=== PATIENT | female | born 1930 | race African-American/Black ===

== ENCOUNTER 2017-01-04 08:51 | Day surgery (SDC) | payer MEDICARE, OTHER ==
[~2017-01-04] VITALS: Ht 157.5 cm; Wt 52.6 kg
[~2017-01-04 08:51] MED LIST: BALANCED SALT IRRIG SOLN COMB1 500ML OP SCH
[2017-01-04] MEDS ORDERED: PHENYLEPHRINE HCL 10% OPHTH DROPS 5ML LEFTEYE ONE (09:40)
[2017-01-04] MEDS ORDERED: TROPICAMIDE 1% OPHTH DROPS 15ML LEFTEYE ONE (09:40)
[2017-01-04] MEDS ORDERED: CYCLOPENTOLATE HCL 1% OPHTH DROPS 2ML LEFTEYE ONE (09:40)
[2017-01-04] MEDS ORDERED: LACTATED RINGERS 1,000 ML IV SCH (10:20)
[2017-01-04] MEDS ORDERED: LIDOCAINE HCL 2%/EPINEPHRINE 1:100,000 20 ML VIAL INFIL ONE (11:33)
[2017-01-04] MEDS ORDERED: TETRACAINE 0.5% OPHTH DROPS 4ML ONE (11:33)
[2017-01-04] MEDS ORDERED: PREDNISOLONE ACETATE 1% OPHTH DROPS 1ML ONE (11:33)
[2017-01-04] MEDS ORDERED: ACETYLCHOLINE CHLORIDE INTRAOCULAR SOLUTION 1:100 ELECTROLYTE DILUENT IO ONE (11:33)
[2017-01-04] MEDS ORDERED: BALANCED SALT IRRIG SOLN 15ML ONE (11:33)
[2017-01-04] MEDS ORDERED: LIDOCAINE HCL/PF 2% 20 MG/ML 10ML VIAL ONE (11:33)
[2017-01-04] MEDS ORDERED: NEO/POLYMYX B SULF/DEXAMETH OPHTH OINT 3.5GM ONE (11:33)
[2017-01-04] MEDS ORDERED: CIPROFLOXACIN 0.3% OPHTH SOLN 2.5ML ONE (11:33)
[2017-01-04] MEDS ORDERED: BUPIVACAINE HCL/PF 0.75% (7.5MG/ML) 10ML ONE (11:33)
[2017-01-04] MEDS ORDERED: DORZ10DR7 EACHEYE (11:51)
[2017-01-04] MEDS ORDERED: ERGO2000 PO (11:51)
[2017-01-04] MEDS ORDERED: OCD PO (11:51)
[2017-01-04] MEDS ORDERED: LATA2.5D2 EACHEYE (11:51)
[2017-01-04] MEDS ORDERED: SENN25TA27 PO (11:51)
[2017-01-04] MEDS ORDERED: HYALURONATE SODIUM 14 MG/ML 0.85ML SYRINGE IO ONE (12:21)
[2017-01-04] MEDS ORDERED: MIDAZOLAM HCL 2 MG/2 ML VIAL ONE (12:31)
[2017-01-04] MEDS ORDERED: PROPOFOL 200MG/20ML VIAL IV ONE (12:35)
[2017-01-04] MEDS ORDERED: SODIUM CHLORIDE 0.9% 1,000 ML IV SCH (12:38)
[2017-01-04] MEDS ORDERED: MORPHINE SULFATE 2 MG/ML CPJ (NOT FOR IM USE) IV PRN (12:45)
[2017-01-04] MEDS ORDERED: ONDANSETRON HCL 4MG/2ML VIAL IV PRN (12:45)
== END 2017-01-04 15:12 | disposition home or self-care (01) ==
LOC: OR 08:51
PROVIDERS: ATTEND Ophthalmology
DX: H25.9 Unspecified age-related cataract (principal); H40.1120 Primary open-angle glaucoma, left eye, stage unspecified; D64.9 Anemia, unspecified
CPT/HCPCS: 66625; 66984; J2250; J3490; V2632; J2704

== ENCOUNTER 2020-11-17 00:54 | Inpatient (IN) | payer MEDICARE, OTHER ==
[~2020-11-17] VITALS: Ht 162.6 cm; Wt 56.8 kg
[~2020-11-17 00:54] MED LIST changes: -BALANCED SALT IRRIG SOLN COMB1 500ML OP SCH; +DORZ10DR8 EACHEYE; +ERGO2000 PO; +LATA2.5D14 EACHEYE; +OCD PO; +SENN25TA27 PO; +TOPUD MT
[2020-11-17] MEDS ORDERED: MAGNESIUM/ALUMINUM HYDROXIDE/SIMETHICONE 30ML UDC PO STA (02:05)
[2020-11-17] MEDS ORDERED: ACETAMINOPHEN 325MG TABLET PO STA (02:05)
[2020-11-17 02:39] LABS: BASOPHILS % 0.3 % (0.0-2.0); HEMATOCRIT. 36.5 % (36.0-48.0); HEMOGLOBIN. 11.9 g/dL (12.0-16.0); MEAN CORPUSCULAR HEMOGLOBIN 30.4 pg (28.0-32.0); MEAN CORPUSCULAR VOLUME 93.2 fL (81.0-99.0); MEAN PLATELET VOLUME 7.1 fl (7.4-10.4); MONOCYTES % 10.1 % (2.0-8.0); NEUTROPHILS % 78.6 % (40.0-76.0); PLATELET 297 x1000/uL (130-400); RED BLOOD CELL COUNT 3.91 mill/uL (4.2-5.4); RED CELL DISTRIBUTION WIDTH 13.2 % (11.6-14.6)
[2020-11-17 02:42] LABS: CHLORIDE 100 mEq/L (98-107)
[2020-11-17] MEDS ORDERED: SODIUM CHLORIDE 0.9% 1,000 ML IV ONE (03:15)
[2020-11-17 05:03] LABS: CLARITY URINE CLEAR (CLEAR); COLOR URINE RED (YELLOW); KETONES URINE NEGATIVE (NEGATIVE); LEUKOCYTE ESTERASE URINE TRACE (NEGATIVE); NITRITE URINE NEGATIVE (NEGATIVE); OCCULT BLOOD URINE 3+ (NEGATIVE); PROTEIN URINE 2+ (NEGATIVE); SPECIFIC GRAVITY URINE 1.006 (1.005-1.030); UROBILINOGEN URINE 0.2 E.U./dL (0.2-1.0)
[2020-11-17] MEDS ORDERED: MORPHINE SULFATE 2 MG/ML CPJ (NOT FOR IM USE) IV ONE (06:45)
[2020-11-17] MEDS: HYDROCODONE/ACETAMINOPHEN 10/325MG TABLET PO PRN ×2 (08:56→20:51)
[2020-11-17] MEDS ORDERED: NALOXONE HCL 0.4MG/ML VIAL IV PRN (09:00)
[2020-11-17] MEDS: CEFTRIAXONE 1,000 MG in DEXTROSE 5% WATER 50 ML IV SCH (14:05)
[2020-11-17] MEDS ORDERED: POTASSIUM CHLORIDE 20MEQ TABLET SR PO SCH (17:00)
[2020-11-17 20:30] VITALS: BP 147/69
[2020-11-17] MEDS: ONDANSETRON HCL 4MG/2ML INJ IV PRN (20:50)
[2020-11-17] MEDS ORDERED: ASPI-986 PO (21:14)
[2020-11-17 21:30] VITALS: BP 147/69
[2020-11-17] MEDS ORDERED: ACETAMINOPHEN 325MG TABLET PO PRN (22:00)
[2020-11-17] MEDS ORDERED: ZOLPIDEM TARTRATE 5MG TABLET PO PRN (22:00)
[2020-11-17] MEDS: LATANOPROST 0.005% OPHTH DROPS 2.5ML BOTHEYE SCH (23:30)
[2020-11-18] VITALS: BP 109/59
[2020-11-18 04:00] VITALS: BP 133/75
[2020-11-18 08:00] VITALS: BP 133/69
[2020-11-18 09:01] LABS: BASOPHILS % 0.3 % (0.0-2.0); EOSINOPHILS % 0.6 % (0.0-5.0); HEMATOCRIT. 32.7 % (36.0-48.0); HEMOGLOBIN. 10.9 g/dL (12.0-16.0); LYMPHOCYTES % 14.4 % (20.0-50.0); MEAN CORPUSCULAR HEMOGLOBIN 30.5 pg (28.0-32.0); MEAN CORPUSCULAR VOLUME 91.8 fL (81.0-99.0); MEAN PLATELET VOLUME 7.2 fl (7.4-10.4); MONOCYTES % 11.2 % (2.0-8.0); NEUTROPHILS % 73.5 % (40.0-76.0); PLATELET 284 x1000/uL (130-400); RED BLOOD CELL COUNT 3.56 mill/uL (4.2-5.4); RED CELL DISTRIBUTION WIDTH 13.3 % (11.6-14.6)
[2020-11-18 12:00] VITALS: BP 99/50
[2020-11-18] MEDS: CEFTRIAXONE 1,000 MG in DEXTROSE 5% WATER 50 ML IV SCH (12:29)
[2020-11-18] MEDS ORDERED: LACTULOSE 20G/30ML UDC PO NR (14:15)
[2020-11-18 16:00] VITALS: BP 112/68
[2020-11-18] MEDS: HYDROCODONE/ACETAMINOPHEN 10/325MG TABLET PO PRN (17:48)
[2020-11-18 20:00] VITALS: BP 102/61
[2020-11-18] MEDS: LATANOPROST 0.005% OPHTH DROPS 2.5ML BOTHEYE SCH (20:42)
[2020-11-19] VITALS (7 sets, daily range): BP systolic 98–134; BP diastolic 61–83
[2020-11-19] MEDS: HYDROCODONE/ACETAMINOPHEN 10/325MG TABLET PO PRN ×2 (09:06→18:20)
[2020-11-19] MEDS: CEFTRIAXONE 1,000 MG in DEXTROSE 5% WATER 50 ML IV SCH (13:13)
[2020-11-19] MEDS ORDERED: SORBITOL 70% SOLN 30ML PO NR (13:15)
[2020-11-19] MEDS ORDERED: BISACODYL 10MG SUPP PR NR (13:15)
[2020-11-19] MEDS ORDERED: NA PHOS,M-B/NA PHOS,DI-BA ENEMA 118ML PR NR (19:00)
[2020-11-19] MEDS: LATANOPROST 0.005% OPHTH DROPS 2.5ML BOTHEYE SCH (20:12)
[2020-11-20] VITALS: BP 118/74
[2020-11-20 04:00] VITALS: BP 97/36
[2020-11-20] MEDS: HYDROCODONE/ACETAMINOPHEN 10/325MG TABLET PO PRN ×3 (04:25→22:29)
[2020-11-20 08:00] VITALS: BP 118/68
[2020-11-20 12:00] VITALS: BP 144/78
[2020-11-20] MEDS ORDERED: NA PHOS,M-B/NA PHOS,DI-BA ENEMA 118ML PR NR ×2 (12:45→20:00)
[2020-11-20] MEDS: CEFTRIAXONE 1,000 MG in DEXTROSE 5% WATER 50 ML IV SCH (14:12)
[2020-11-20 16:00] VITALS: BP 121/69
[2020-11-20] MEDS ORDERED: BISACODYL 10MG SUPP PR NR (16:45)
[2020-11-20 16:55] LABS: CLARITY URINE TURBID (CLEAR); COLOR URINE RED (YELLOW); KETONES URINE NEGATIVE (NEGATIVE); LEUKOCYTE ESTERASE URINE 2+ (NEGATIVE); NITRITE URINE POSITIVE (NEGATIVE); OCCULT BLOOD URINE 2+ (NEGATIVE); PH URINE 5.5 (4.5-8.0); PROTEIN URINE 2+ (NEGATIVE); SPECIFIC GRAVITY URINE 1.013 (1.005-1.030); UROBILINOGEN URINE 0.2 E.U./dL (0.2-1.0)
[2020-11-20] MEDS ORDERED: SORBITOL 70% SOLN 30ML PO NR (17:00)
[2020-11-20 20:00] VITALS: BP 144/75
[2020-11-20] MEDS: LATANOPROST 0.005% OPHTH DROPS 2.5ML BOTHEYE SCH (22:16)
[2020-11-20] MEDS: DEXT 5%/0.45% NACL KCL 20MEQ/L 1,000 ML IV SCH (22:16)
[2020-11-21] VITALS: BP 136/77
[2020-11-21 04:00] VITALS: BP 146/76
[2020-11-21 08:00] VITALS: BP 118/68
[2020-11-21] MEDS: LACTULOSE 20G/30ML UDC PO SCH ×3 (09:50→16:06)
[2020-11-21] MEDS: DEXT 5%/0.45% NACL KCL 20MEQ/L 1,000 ML IV SCH ×2 (10:02→16:02)
[2020-11-21 12:00] VITALS: BP 155/63
[2020-11-21] MEDS: HYDROCODONE/ACETAMINOPHEN 10/325MG TABLET PO PRN ×2 (13:56→21:00)
[2020-11-21 16:00] VITALS: BP 156/86
[2020-11-21] MEDS ORDERED: SORBITOL 70% SOLN 30ML PO NR (16:00)
[2020-11-21] MEDS: CEFTRIAXONE 1,000 MG in DEXTROSE 5% WATER 50 ML IV SCH (16:02)
[2020-11-21 20:00] VITALS: BP 176/92
[2020-11-21] MEDS: ONDANSETRON HCL 4MG/2ML INJ IV PRN (20:58)
[2020-11-21] MEDS: CLONIDINE 0.1MG TABLET PO PRN (20:59)
[2020-11-21] MEDS: LATANOPROST 0.005% OPHTH DROPS 2.5ML BOTHEYE SCH (21:03)
[2020-11-22] VITALS (7 sets, daily range): BP systolic 146–184; BP diastolic 71–102
[2020-11-22] MEDS: DEXT 5%/0.45% NACL KCL 20MEQ/L 1,000 ML IV SCH ×2 (02:57→22:36)
[2020-11-22] MEDS: CLONIDINE 0.1MG TABLET PO PRN (02:57)
[2020-11-22] MEDS: HYDROCODONE/ACETAMINOPHEN 10/325MG TABLET PO PRN (02:57)
[2020-11-22] MEDS: ONDANSETRON HCL 4MG/2ML INJ IV PRN ×2 (02:57→10:05)
[2020-11-22] MEDS ORDERED: HYDRALAZINE 20MG/ML VIAL IV PRN (05:15)
[2020-11-22] MEDS: MORPHINE SULFATE 2 MG/ML CPJ (NOT FOR IM USE) IV PRN ×2 (05:31→23:44)
[2020-11-22] MEDS: LACTULOSE 20G/30ML UDC PO SCH ×3 (09:23→17:00)
[2020-11-22] MEDS: AMLODIPINE 10MG TABLET PO SCH (09:24)
[2020-11-22] MEDS: HYDRALAZINE 10 MG in SODIUM CHLORIDE 0.9% 49.5 ML IV PRN ×2 (12:48→23:46)
[2020-11-22] MEDS: CEFTRIAXONE 1,000 MG in DEXTROSE 5% WATER 50 ML IV SCH (12:52)
[2020-11-22] MEDS: LATANOPROST 0.005% OPHTH DROPS 2.5ML BOTHEYE SCH (21:54)
[2020-11-23 00:45] VITALS: BP 159/85
[2020-11-23 04:00] VITALS: BP 113/71
[2020-11-23 08:00] VITALS: BP 147/77
[2020-11-23] MEDS: AMLODIPINE 10MG TABLET PO SCH (09:41)
[2020-11-23] MEDS: LACTULOSE 20G/30ML UDC PO SCH ×3 (09:41→17:52)
[2020-11-23] MEDS: DEXT 5%/0.45% NACL KCL 20MEQ/L 1,000 ML IV SCH (09:43)
[2020-11-23 12:00] VITALS: BP 156/87
[2020-11-23] MEDS: MORPHINE SULFATE 2 MG/ML CPJ (NOT FOR IM USE) IV PRN ×2 (12:31→23:21)
[2020-11-23] MEDS: ONDANSETRON HCL 4MG/2ML INJ IV PRN (12:48)
[2020-11-23 13:41] LABS: HEMATOCRIT. 34.4 % (36.0-48.0); HEMOGLOBIN. 11.8 g/dL (12.0-16.0); MEAN CORPUSCULAR HEMOGLOBIN 31.3 pg (28.0-32.0); MEAN CORPUSCULAR VOLUME 91.1 fL (81.0-99.0); MEAN PLATELET VOLUME 6.7 fl (7.4-10.4); PLATELET 318 x1000/uL (130-400); RED BLOOD CELL COUNT 3.78 mill/uL (4.2-5.4); RED CELL DISTRIBUTION WIDTH 13.3 % (11.6-14.6)
[2020-11-23 16:00] VITALS: BP 162/90
[2020-11-23] MEDS: METOCLOPRAMIDE HCL 10MG/2ML VIAL IV SCH ×2 (17:52→23:20)
[2020-11-23] MEDS: DEXT 5%/0.9% NACL 1,000 ML IV SCH (17:52)
[2020-11-23 20:00] VITALS: BP 145/81
[2020-11-23] MEDS: LATANOPROST 0.005% OPHTH DROPS 2.5ML BOTHEYE SCH (21:00)
[2020-11-23] MEDS: PIPERACILLIN/TAZOBACTAM 2.25 G in DEXTROSE 5% WATER 50 ML IV SCH (23:20)
[2020-11-24] VITALS: BP 113/73
[2020-11-24 00:24] LABS: NUCLEATED RED BLOOD CELLS 1 /100 WBC; PLATELET ESTIMATE NORMAL
[2020-11-24] MEDS: DEXT 5%/0.9% NACL 1,000 ML IV SCH ×2 (02:53→11:38)
[2020-11-24 04:00] VITALS: BP 152/91
[2020-11-24] MEDS: METOCLOPRAMIDE HCL 10MG/2ML VIAL IV SCH ×3 (06:00→17:51)
[2020-11-24] MEDS: PIPERACILLIN/TAZOBACTAM 2.25 G in DEXTROSE 5% WATER 50 ML IV SCH ×4 (06:00→22:59)
[2020-11-24 06:22] LABS: HEMATOCRIT. 36.1 % (36.0-48.0); HEMOGLOBIN. 11.8 g/dL (12.0-16.0); LYMPHOCYTES % 8.3 % (20.0-50.0); MEAN CORPUSCULAR HEMOGLOBIN 30.2 pg (28.0-32.0); MEAN CORPUSCULAR VOLUME 92.3 fL (81.0-99.0); MONOCYTES % 13.3 % (2.0-8.0); NEUTROPHILS % 78.4 % (40.0-76.0); PLATELET 294 x1000/uL (130-400); RED BLOOD CELL COUNT 3.91 mill/uL (4.2-5.4); RED CELL DISTRIBUTION WIDTH 13.4 % (11.6-14.6)
[2020-11-24 08:00] VITALS: BP 161/85
[2020-11-24] MEDS: AMLODIPINE 10MG TABLET PO SCH (09:00)
[2020-11-24] MEDS: LACTULOSE 20G/30ML UDC PO SCH (09:00)
[2020-11-24] MEDS: HYDRALAZINE 20MG/ML VIAL IV PRN (09:37)
[2020-11-24 12:00] VITALS: BP 143/72
[2020-11-24] MEDS ORDERED: FUROSEMIDE 40MG/4ML VIAL IVP SCH (13:00)
[2020-11-24 16:00] VITALS: BP 116/71
[2020-11-24] MEDS: MORPHINE SULFATE 2 MG/ML CPJ (NOT FOR IM USE) IV PRN (16:06)
[2020-11-24 20:00] VITALS: BP 113/69
[2020-11-24] MEDS: LATANOPROST 0.005% OPHTH DROPS 2.5ML BOTHEYE SCH (22:55)
[2020-11-25] VITALS: BP 115/62
[2020-11-25] MEDS: METOCLOPRAMIDE HCL 10MG/2ML VIAL IV SCH ×4 (00:11→18:42)
[2020-11-25] MEDS: DEXT 5%/0.9% NACL 1,000 ML IV SCH ×2 (01:20→16:00)
[2020-11-25 04:00] VITALS: BP 121/88
[2020-11-25] MEDS: PIPERACILLIN/TAZOBACTAM 2.25 G in DEXTROSE 5% WATER 50 ML IV SCH ×4 (04:56→22:59)
[2020-11-25 08:00] VITALS: BP 114/57
[2020-11-25] MEDS: AMLODIPINE 10MG TABLET PO SCH (09:00)
[2020-11-25 10:59] LABS: EOSINOPHILS % 0.1 % (0.0-5.0); HEMATOCRIT. 29.1 % (36.0-48.0); HEMOGLOBIN. 10.2 g/dL (12.0-16.0); LYMPHOCYTES % 10.9 % (20.0-50.0); MEAN CORPUSCULAR HEMOGLOBIN 31.7 pg (28.0-32.0); MEAN CORPUSCULAR VOLUME 90.8 fL (81.0-99.0); MEAN PLATELET VOLUME 6.8 fl (7.4-10.4); MONOCYTES % 14.7 % (2.0-8.0); NEUTROPHILS % 74.3 % (40.0-76.0); PLATELET 269 x1000/uL (130-400); RED CELL DISTRIBUTION WIDTH 13.6 % (11.6-14.6)
[2020-11-25 11:00] LABS: CHLORIDE 105 mEq/L (98-107)
[2020-11-25 12:00] VITALS: BP 100/60
[2020-11-25 16:00] VITALS: BP 100/50
[2020-11-25] MEDS: FUROSEMIDE 40MG/4ML VIAL IVP SCH (16:00)
[2020-11-25 20:00] VITALS: BP 96/72
[2020-11-25] MEDS ORDERED: ENOXAPARIN 40MG/0.4ML SYR SUBCUT SCH (20:10)
[2020-11-25] MEDS: LATANOPROST 0.005% OPHTH DROPS 2.5ML BOTHEYE SCH (21:00)
[2020-11-26] VITALS (15 sets, daily range): BP systolic 105–165; BP diastolic 61–86
[2020-11-26] MEDS: METOCLOPRAMIDE HCL 10MG/2ML VIAL IV SCH ×5 (00:41→23:32)
[2020-11-26] MEDS: PIPERACILLIN/TAZOBACTAM 2.25 G in DEXTROSE 5% WATER 50 ML IV SCH ×4 (05:15→23:16)
[2020-11-26 07:40] LABS: BASOPHILS % 0.1 % (0.0-2.0); EOSINOPHILS % 0.3 % (0.0-5.0); HEMATOCRIT. 31.5 % (36.0-48.0); HEMOGLOBIN. 10.5 g/dL (12.0-16.0); MEAN CORPUSCULAR HEMOGLOBIN 30.9 pg (28.0-32.0); MEAN CORPUSCULAR VOLUME 92.3 fL (81.0-99.0); MEAN PLATELET VOLUME 7.2 fl (7.4-10.4); MONOCYTES % 14.5 % (2.0-8.0); NEUTROPHILS % 71.1 % (40.0-76.0); PLATELET 267 x1000/uL (130-400); RED BLOOD CELL COUNT 3.42 mill/uL (4.2-5.4); RED CELL DISTRIBUTION WIDTH 13.8 % (11.6-14.6)
[2020-11-26] MEDS: AMLODIPINE 10MG TABLET PO SCH (09:00)
[2020-11-26] MEDS: FUROSEMIDE 40MG/4ML VIAL IVP SCH (09:58)
[2020-11-26] MEDS ORDERED: POTASSIUM CHLORIDE INJ 40 MEQ in DEXT 5% WATER 250 ML IV NR ×2 (11:00→20:00)
[2020-11-26] MEDS: DEXT 5%/0.9% NACL 1,000 ML IV SCH ×2 (11:33→17:27)
[2020-11-26] MEDS ORDERED: LIDOCAINE HCL 1% 20ML VIAL (Pyxis) INJ ONE (16:08)
[2020-11-26] MEDS ORDERED: POLYMYXIN B SULFATE 500000 UNITS/VIAL ONE ×2 (16:09→20:49)
[2020-11-26] MEDS ORDERED: BUPIVACAINE HCL/PF 0.5% (5MG/ML) 10ML ONE (16:09)
[2020-11-26] MEDS ORDERED: ROCURONIUM BROMIDE 10MG/ML VIAL 5ML IV ONE (19:47)
[2020-11-26] MEDS ORDERED: PROPOFOL 200MG/20ML VIAL IV ONE (19:56)
[2020-11-26] MEDS ORDERED: DEXAMETHASONE 4MG/ML 1ML VIAL ONE (19:56)
[2020-11-26] MEDS ORDERED: EPHEDRINE SULFATE 50MG/ML VIAL ONE (20:05)
[2020-11-26] MEDS ORDERED: PROPOFOL 10MG/ML 100ML 100 ML IV ONE (20:12)
[2020-11-26] MEDS ORDERED: ALBUMIN HUMAN 25GM/100ML (25%) IV ONE (20:32)
[2020-11-26] MEDS: LATANOPROST 0.005% OPHTH DROPS 2.5ML BOTHEYE SCH (21:00)
[2020-11-26] MEDS ORDERED: MORPHINE SULFATE 4 MG/ML CPJ (NOT FOR IM USE) IV PRN (21:30)
[2020-11-26] MEDS ORDERED: PROPOFOL 10MG/ML 100ML 100 ML IV PRN (22:00)
[2020-11-26 22:34] LABS: BG CARBOXYHEMOGLOBIN 0.3 % (0.5-1.5); BG DEOXYHEMOGLOBIN 0.6 % (0.0-5.0); BG FRACTION INSPIRED OXYGEN 100; BG HCO3 ACT 24.4 mmol/L (22.0-26.0); BG METHEMOGLOBIN 0.5 % (0.0-1.5); BG OXYGEN SATURATION 99.4 % (92.0-98.5); BG OXYHEMOGLOBIN 98.6 % (94.0-97.0); BG PCO2 33.7 mmHg (35.0-45.0); BG PH 7.477 (7.350-7.450); BG TOTAL HEMOGLOBIN 9.5 g/dL (12.0-18.0); BG VENT MODE VENT - AC
[2020-11-26] MEDS: PROPOFOL 10MG/ML 100ML 100 ML IV PRN (23:17)
[2020-11-27] VITALS (89 sets, daily range): BP systolic 102–175; BP diastolic 40–82
[2020-11-27] MEDS: METOCLOPRAMIDE HCL 10MG/2ML VIAL IV SCH ×4 (05:14→23:34)
[2020-11-27] MEDS: PIPERACILLIN/TAZOBACTAM 2.25 G in DEXTROSE 5% WATER 50 ML IV SCH ×4 (05:14→22:32)
[2020-11-27 05:27] LABS: HEMOGLOBIN. 9.1 g/dL (12.0-16.0); MEAN CORPUSCULAR HEMOGLOBIN 31.9 pg (28.0-32.0); MEAN CORPUSCULAR VOLUME 91.4 fL (81.0-99.0); MEAN PLATELET VOLUME 7.2 fl (7.4-10.4); PLATELET 197 x1000/uL (130-400); RED BLOOD CELL COUNT 2.85 mill/uL (4.2-5.4); RED CELL DISTRIBUTION WIDTH 13.5 % (11.6-14.6)
[2020-11-27] MEDS: DEXT 5%/0.9% NACL 1,000 ML IV SCH ×2 (06:04→15:19)
[2020-11-27] MEDS: PROPOFOL 10MG/ML 100ML 100 ML IV PRN (06:04)
[2020-11-27 07:50] LABS: PLATELET ESTIMATE NORMAL
[2020-11-27] MEDS: AMLODIPINE 10MG TABLET PO SCH (09:00)
[2020-11-27] MEDS ORDERED: POTASSIUM CHLORIDE INJ 40 MEQ in DEXT 5% WATER 250 ML IV NR ×2 (09:00→17:00)
[2020-11-27] MEDS: FUROSEMIDE 40MG/4ML VIAL IVP SCH (09:55)
[2020-11-27 12:15] LABS: BG BASE EXCESS 1.4 mmol/L (-2.0-2.0); BG CARBOXYHEMOGLOBIN 0.3 % (0.5-1.5); BG DEOXYHEMOGLOBIN 4.6 % (0.0-5.0); BG HCO3 ACT 24.8 mmol/L (22.0-26.0); BG METHEMOGLOBIN 0.3 % (0.0-1.5); BG OXYGEN SATURATION 95.4 % (92.0-98.5); BG OXYHEMOGLOBIN 94.8 % (94.0-97.0); BG PCO2 34.8 mmHg (35.0-45.0); BG PH 7.471 (7.350-7.450); BG PO2 77.7 mmHg (75.0-100.0); BG SAMPLE SITE RIGHT BRACHIAL; BG TOTAL HEMOGLOBIN 10.1 g/dL (12.0-18.0); BG VENT MODE VENT - CPAP
[2020-11-27] MEDS: HYDRALAZINE 20MG/ML VIAL IV PRN (12:44)
[2020-11-27] MEDS: MORPHINE SULFATE 2 MG/ML CPJ (NOT FOR IM USE) IV PRN (20:26)
[2020-11-27] MEDS: LATANOPROST 0.005% OPHTH DROPS 2.5ML BOTHEYE SCH (23:34)
[2020-11-28] VITALS (48 sets, daily range): BP systolic 92–138; BP diastolic 50–96
[2020-11-28] MEDS: METOCLOPRAMIDE HCL 10MG/2ML VIAL IV SCH ×4 (05:23→23:34)
[2020-11-28] MEDS: PIPERACILLIN/TAZOBACTAM 2.25 G in DEXTROSE 5% WATER 50 ML IV SCH ×4 (05:23→23:33)
[2020-11-28 05:28] LABS: EOSINOPHILS % 0.1 % (0.0-5.0); HEMOGLOBIN. 10.1 g/dL (12.0-16.0); LYMPHOCYTES % 11.1 % (20.0-50.0); MEAN CORPUSCULAR HEMOGLOBIN 30.5 pg (28.0-32.0); MEAN CORPUSCULAR VOLUME 90.6 fL (81.0-99.0); MEAN PLATELET VOLUME 6.7 fl (7.4-10.4); MONOCYTES % 13.8 % (2.0-8.0); PLATELET 246 x1000/uL (130-400); RED BLOOD CELL COUNT 3.31 mill/uL (4.2-5.4); RED CELL DISTRIBUTION WIDTH 13.6 % (11.6-14.6)
[2020-11-28] MEDS: FUROSEMIDE 40MG/4ML VIAL IVP SCH (08:43)
[2020-11-28] MEDS: AMLODIPINE 10MG TABLET PO SCH (08:43)
[2020-11-28] MEDS: DEXTROSE 5% WATER 1,000 ML IV SCH ×2 (10:14→23:34)
[2020-11-28] MEDS: MORPHINE SULFATE 2 MG/ML CPJ (NOT FOR IM USE) IV PRN ×2 (16:15→23:37)
[2020-11-28] MEDS: LATANOPROST 0.005% OPHTH DROPS 2.5ML BOTHEYE SCH (21:04)
[2020-11-29] VITALS (16 sets, daily range): BP systolic 93–139; BP diastolic 47–86
[2020-11-29 05:37] LABS: HEMATOCRIT. 33.9 % (36.0-48.0); HEMOGLOBIN. 11.3 g/dL (12.0-16.0); MEAN CORPUSCULAR HEMOGLOBIN 30.5 pg (28.0-32.0); MEAN CORPUSCULAR VOLUME 91.8 fL (81.0-99.0); PLATELET 222 x1000/uL (130-400); RED CELL DISTRIBUTION WIDTH 13.7 % (11.6-14.6)
[2020-11-29] MEDS: MORPHINE SULFATE 2 MG/ML CPJ (NOT FOR IM USE) IV PRN (06:05)
[2020-11-29] MEDS: METOCLOPRAMIDE HCL 10MG/2ML VIAL IV SCH ×3 (06:05→17:12)
[2020-11-29] MEDS ORDERED: POTASSIUM CHLORIDE INJ 40 MEQ in DEXT 5% WATER 500 ML IV SCH (08:00)
[2020-11-29 08:03] LABS: NUCLEATED RED BLOOD CELLS 1 /100 WBC; PLATELET ESTIMATE NORMAL
[2020-11-29] MEDS: AMLODIPINE 10MG TABLET PO SCH (09:00)
[2020-11-29] MEDS: FUROSEMIDE 40MG/4ML VIAL IVP SCH (09:13)
[2020-11-29] MEDS: BISACODYL 10MG SUPP PR SCH (09:13)
[2020-11-29] MEDS ORDERED: ENOXAPARIN 60MG/0.6ML SYR SUBCUT SCH (11:00)
[2020-11-29] MEDS: DEXTROSE 5% WATER 1,000 ML IV SCH (12:40)
[2020-11-29 21:40] LABS: BASOPHILS % 0.2 % (0.0-2.0); EOSINOPHILS % 0.7 % (0.0-5.0); HEMATOCRIT. 31.5 % (36.0-48.0); HEMOGLOBIN. 10.6 g/dL (12.0-16.0); LYMPHOCYTES % 20.2 % (20.0-50.0); MEAN CORPUSCULAR HEMOGLOBIN 30.9 pg (28.0-32.0); MEAN CORPUSCULAR VOLUME 91.6 fL (81.0-99.0); MEAN PLATELET VOLUME 7.1 fl (7.4-10.4); MONOCYTES % 10.6 % (2.0-8.0); NEUTROPHILS % 68.3 % (40.0-76.0); PLATELET 213 x1000/uL (130-400); RED BLOOD CELL COUNT 3.44 mill/uL (4.2-5.4); RED CELL DISTRIBUTION WIDTH 13.7 % (11.6-14.6)
[2020-11-29 21:44] LABS: INR 1.2; PARTIAL THROMBOPLASTIN TIME 36.2 sec (23.4-31.0); PROTHROMBIN TIME 12.4 sec (9.6-11.0)
[2020-11-29] MEDS ORDERED: PANTOPRAZOLE SODIUM 40 MG/VIAL IV NR (23:45)
[2020-11-29] MEDS: LATANOPROST 0.005% OPHTH DROPS 2.5ML BOTHEYE SCH (23:49)
[2020-11-30] VITALS (13 sets, daily range): BP systolic 92–116; BP diastolic 43–73
[2020-11-30] MEDS: METOCLOPRAMIDE HCL 10MG/2ML VIAL IV SCH ×4 (00:12→17:42)
[2020-11-30] MEDS: MORPHINE SULFATE 2 MG/ML CPJ (NOT FOR IM USE) IV PRN ×2 (00:13→07:40)
[2020-11-30] MEDS: DEXTROSE 5% WATER 1,000 ML IV SCH ×2 (03:04→21:30)
[2020-11-30] MEDS ORDERED: PANTOPRAZOLE SODIUM 40 MG/VIAL IV NR (06:00)
[2020-11-30] MEDS: AMLODIPINE 10MG TABLET PO SCH (08:23)
[2020-11-30] MEDS: BISACODYL 10MG SUPP PR SCH (08:26)
[2020-11-30] MEDS ORDERED: PANTOPRAZOLE SODIUM 40 MG/VIAL IV SCH (09:00)
[2020-11-30 10:18] LABS: BASOPHILS % 0.1 % (0.0-2.0); EOSINOPHILS % 0.4 % (0.0-5.0); HEMATOCRIT. 27.2 % (36.0-48.0); HEMOGLOBIN. 9.3 g/dL (12.0-16.0); LYMPHOCYTES % 16.8 % (20.0-50.0); MEAN CORPUSCULAR VOLUME 90.9 fL (81.0-99.0); MEAN PLATELET VOLUME 7.5 fl (7.4-10.4); MONOCYTES % 8.9 % (2.0-8.0); NEUTROPHILS % 73.8 % (40.0-76.0); PLATELET 193 x1000/uL (130-400); RED BLOOD CELL COUNT 2.99 mill/uL (4.2-5.4); RED CELL DISTRIBUTION WIDTH 13.7 % (11.6-14.6)
[2020-11-30] MEDS: ENOXAPARIN 60MG/0.6ML SYR SUBCUT SCH (12:07)
[2020-11-30] MEDS ORDERED: POTASSIUM CHLORIDE INJ 40 MEQ in DEXT 5% WATER 250 ML IV NR (13:30)
[2020-11-30] MEDS: PANTOPRAZOLE SODIUM 40 MG/VIAL IV SCH (17:43)
[2020-11-30] MEDS: LATANOPROST 0.005% OPHTH DROPS 2.5ML BOTHEYE SCH (21:30)
[2020-12-01] VITALS (12 sets, daily range): BP systolic 108–133; BP diastolic 40–76
[2020-12-01] MEDS: METOCLOPRAMIDE HCL 10MG/2ML VIAL IV SCH ×4 (00:17→18:38)
[2020-12-01] MEDS: DEXTROSE 5% WATER 1,000 ML IV SCH ×2 (04:41→18:38)
[2020-12-01] MEDS: PANTOPRAZOLE SODIUM 40 MG/VIAL IV SCH ×2 (06:24→18:38)
[2020-12-01] MEDS: AMLODIPINE 10MG TABLET PO SCH (09:00)
[2020-12-01 09:54] LABS: BASOPHILS % 0.2 % (0.0-2.0); EOSINOPHILS % 0.2 % (0.0-5.0); HEMATOCRIT. 27.8 % (36.0-48.0); HEMOGLOBIN. 9.6 g/dL (12.0-16.0); LYMPHOCYTES % 15.5 % (20.0-50.0); MEAN CORPUSCULAR HEMOGLOBIN 31.3 pg (28.0-32.0); MEAN CORPUSCULAR VOLUME 90.8 fL (81.0-99.0); MEAN PLATELET VOLUME 7.7 fl (7.4-10.4); MONOCYTES % 7.3 % (2.0-8.0); NEUTROPHILS % 76.8 % (40.0-76.0); PLATELET 204 x1000/uL (130-400); RED BLOOD CELL COUNT 3.06 mill/uL (4.2-5.4); RED CELL DISTRIBUTION WIDTH 13.5 % (11.6-14.6)
[2020-12-01] MEDS: ENOXAPARIN 60MG/0.6ML SYR SUBCUT SCH (10:14)
[2020-12-01] MEDS ORDERED: SODIUM CHLORIDE 0.9% 250 ML IV NR (10:15)
[2020-12-01] MEDS ORDERED: METOPROLOL TARTRATE 5MG/5ML VIAL IV PRN (10:15)
[2020-12-01] MEDS: MORPHINE SULFATE 2 MG/ML CPJ (NOT FOR IM USE) IV PRN (10:16)
[2020-12-01] MEDS: BISACODYL 10MG SUPP PR SCH (10:43)
[2020-12-01] MEDS ORDERED: POTASSIUM CHLORIDE INJ 40 MEQ in DEXT 5% WATER 250 ML IV SCH (13:00)
[2020-12-01] MEDS ORDERED: MAGNESIUM 1 G PREMIX 100 ML IV NR (15:00)
[2020-12-01] MEDS: LATANOPROST 0.005% OPHTH DROPS 2.5ML BOTHEYE SCH (21:03)
[2020-12-02] VITALS (12 sets, daily range): BP systolic 93–145; BP diastolic 30–67
[2020-12-02] MEDS: METOCLOPRAMIDE HCL 10MG/2ML VIAL IV SCH ×4 (00:45→18:11)
[2020-12-02] MEDS: PANTOPRAZOLE SODIUM 40 MG/VIAL IV SCH ×2 (06:09→18:11)
[2020-12-02] MEDS: DEXTROSE 5% WATER 1,000 ML IV SCH (08:09)
[2020-12-02] MEDS: BISACODYL 10MG SUPP PR SCH (08:12)
[2020-12-02] MEDS: AMLODIPINE 10MG TABLET PO SCH ×2 (09:00→10:24)
[2020-12-02 09:20] LABS: BASOPHILS % 0.2 % (0.0-2.0); EOSINOPHILS % 0.4 % (0.0-5.0); HEMATOCRIT. 26.5 % (36.0-48.0); HEMOGLOBIN. 9.1 g/dL (12.0-16.0); LYMPHOCYTES % 14.4 % (20.0-50.0); MEAN CORPUSCULAR HEMOGLOBIN 31.4 pg (28.0-32.0); MEAN CORPUSCULAR VOLUME 91.3 fL (81.0-99.0); MEAN PLATELET VOLUME 7.7 fl (7.4-10.4); MONOCYTES % 6.2 % (2.0-8.0); NEUTROPHILS % 78.8 % (40.0-76.0); PLATELET 210 x1000/uL (130-400); RED BLOOD CELL COUNT 2.91 mill/uL (4.2-5.4); RED CELL DISTRIBUTION WIDTH 13.5 % (11.6-14.6)
[2020-12-02] MEDS: ENOXAPARIN 60MG/0.6ML SYR SUBCUT SCH (10:24)
[2020-12-02] MEDS ORDERED: POTASSIUM CHLORIDE 20MEQ TABLET SR PO NR (10:30)
[2020-12-02] MEDS: LATANOPROST 0.005% OPHTH DROPS 2.5ML BOTHEYE SCH (20:35)
[2020-12-03] VITALS (12 sets, daily range): BP systolic 91–122; BP diastolic 41–69
[2020-12-03] MEDS: METOCLOPRAMIDE HCL 10MG/2ML VIAL IV SCH ×2 (00:26→06:34)
[2020-12-03] MEDS: PANTOPRAZOLE SODIUM 40 MG/VIAL IV SCH (06:34)
[2020-12-03] MEDS: PANTOPRAZOLE 40MG DR TABLET PO SCH (08:13)
[2020-12-03] MEDS: AMLODIPINE 10MG TABLET PO SCH (08:13)
[2020-12-03] MEDS: ENOXAPARIN 60MG/0.6ML SYR SUBCUT SCH (08:15)
[2020-12-03 10:37] LABS: HEMATOCRIT. 27.3 % (36.0-48.0); MEAN CORPUSCULAR HEMOGLOBIN 30.3 pg (28.0-32.0); MEAN CORPUSCULAR VOLUME 92.4 fL (81.0-99.0); MEAN PLATELET VOLUME 7.9 fl (7.4-10.4); PLATELET 233 x1000/uL (130-400); RED BLOOD CELL COUNT 2.95 mill/uL (4.2-5.4); RED CELL DISTRIBUTION WIDTH 13.5 % (11.6-14.6)
[2020-12-03] MEDS ORDERED: CEFTRIAXONE 1 G PREMIX 50 ML IV SCH (11:15)
[2020-12-03] MEDS ORDERED: METOCLOPRAMIDE HCL 10MG TABLET PO SCH (12:00)
[2020-12-03 12:11] LABS: ATYPICAL LYMPHOCYTES 1; PLATELET ESTIMATE NORMAL
[2020-12-03] MEDS: CEFTRIAXONE 1,000 MG in DEXTROSE 5% WATER 50 ML IV SCH (12:25)
[2020-12-03] MEDS: LATANOPROST 0.005% OPHTH DROPS 2.5ML BOTHEYE SCH (21:41)
[2020-12-04] VITALS (7 sets, daily range): BP systolic 103–122; BP diastolic 31–84
[2020-12-04] MEDS: PANTOPRAZOLE 40MG DR TABLET PO SCH (06:37)
[2020-12-04] MEDS: ENOXAPARIN 60MG/0.6ML SYR SUBCUT SCH (09:46)
[2020-12-04] MEDS: CEFTRIAXONE 1,000 MG in DEXTROSE 5% WATER 50 ML IV SCH (11:41)
[2020-12-04 18:30] LABS: BASOPHILS % 0.3 % (0.0-2.0); EOSINOPHILS % 0.5 % (0.0-5.0); HEMATOCRIT. 26.5 % (36.0-48.0); HEMOGLOBIN. 8.8 g/dL (12.0-16.0); LYMPHOCYTES % 8.3 % (20.0-50.0); MEAN CORPUSCULAR HEMOGLOBIN 30.6 pg (28.0-32.0); MEAN CORPUSCULAR VOLUME 92.2 fL (81.0-99.0); MEAN PLATELET VOLUME 8.5 fl (7.4-10.4); NEUTROPHILS % 80.9 % (40.0-76.0); PLATELET 245 x1000/uL (130-400); RED BLOOD CELL COUNT 2.87 mill/uL (4.2-5.4); RED CELL DISTRIBUTION WIDTH 13.5 % (11.6-14.6)
[2020-12-04] MEDS ORDERED: POTASSIUM CHLORIDE 20MEQ TABLET SR PO NR (19:15)
[2020-12-04] MEDS: LATANOPROST 0.005% OPHTH DROPS 2.5ML BOTHEYE SCH (20:52)
[2020-12-05] VITALS (7 sets, daily range): BP systolic 100–129; BP diastolic 44–63
[2020-12-05] MEDS: PANTOPRAZOLE 40MG DR TABLET PO SCH (06:40)
[2020-12-05] MEDS: ENOXAPARIN 60MG/0.6ML SYR SUBCUT SCH (09:24)
[2020-12-05] MEDS: CEFTRIAXONE 1,000 MG in DEXTROSE 5% WATER 50 ML IV SCH (13:27)
== END 2020-12-05 21:52 | DRG 853 ==
LOC: ER 01:22 → EDBD 01:22 → MICUSO 04:09 → EDBD 04:09 → 8WST 18:08 → 6EST 11-22 11:53 → 8WST 11-23 17:39 → MICUNO 11-26 21:20 → 3WST 11-29 11:13 → 7EST 12-04 13:38
PROVIDERS: ADMIT Internal Medicine; ATTEND Internal Medicine
PROC: 0D9670Z Drainage of Stomach with Drainage Device, Via Natural or Artificial Opening (ICD-10-PCS; 2020-11-25)
PROC: 0DBK0ZZ Excision of Ascending Colon, Open Approach (ICD-10-PCS; principal; 2020-11-26)
PROC: 0DBB0ZZ Excision of Ileum, Open Approach (ICD-10-PCS; 2020-11-26)
DX: A41.9 Sepsis, unspecified organism (principal); J96.01 Acute respiratory failure with hypoxia; I50.33 Acute on chronic diastolic (congestive) heart failure; K29.61 Other gastritis with bleeding; E44.1 Mild protein-calorie malnutrition; E87.1 Hypo-osmolality and hyponatremia; G93.40 Encephalopathy, unspecified; N13.6 Pyonephrosis; N17.9 Acute kidney failure, unspecified; C64.1 Malignant neoplasm of right kidney, except renal pelvis; E87.0 Hyperosmolality and hypernatremia; I82.432 Acute embolism and thrombosis of left popliteal vein; K56.690 Other partial intestinal obstruction; E87.6 Hypokalemia; I16.0 Hypertensive urgency; I27.20 Pulmonary hypertension, unspecified; N18.9 Chronic kidney disease, unspecified; D64.9 Anemia, unspecified; Z20.822 Contact with and (suspected) exposure to COVID-19; F03.90 Unspecified dementia, unspecified severity, without behavioral disturbance, psychotic disturbance, mood disturbance, and anxiety; I48.91 Unspecified atrial fibrillation; I36.1 Nonrheumatic tricuspid (valve) insufficiency; E86.1 Hypovolemia; I49.3 Ventricular premature depolarization; I49.1 Atrial premature depolarization; Z78.1 Physical restraint status; Z86.73 Personal history of transient ischemic attack (TIA), and cerebral infarction without residual deficits; Z79.899 Other long term (current) drug therapy; Z79.82 Long term (current) use of aspirin; Z68.21 Body mass index [BMI] 21.0-21.9, adult
CPT/HCPCS: 36415; 36600; 71045; 74018; 74176; 76705; 80048; 80053; 81003; 82375; 82378; 82805; 82962; 83605; 83735; 83880; 84478; 85025; 86850; 86900; 86920; 87426; 88307; 93005; 93306; 94002; 94003; 97116; 97162; 97164; 97530; 99285; C1893; C9113; J0360; J0696; J1100; J1650; J1940; J2270; J2405; J2543; J2704; J2765; J3475; J3480; J3490; J7030; J7040; J7042; J7060; J7070; P9047; A4315

== ENCOUNTER 2020-12-05 21:55 | Inpatient (IN) | payer MEDICARE, OTHER ==
[~2020-12-05] VITALS: Ht 162.6 cm; Wt 56.8 kg
[~2020-12-05 21:55] MED LIST changes: +ASPI-986 PO; -DORZ10DR8 EACHEYE; -ERGO2000 PO; -OCD PO
[2020-12-05 22:10] VITALS: BP 93/51
[2020-12-05] MEDS ORDERED: CLONIDINE 0.1MG TABLET PO PRN (22:45)
[2020-12-05] MEDS ORDERED: ACETAMINOPHEN 325MG TABLET PO PRN (22:45)
[2020-12-05] MEDS ORDERED: ONDANSETRON HCL 4MG/2ML INJ IV PRN (22:45)
[2020-12-05] MEDS ORDERED: HYDRALAZINE 20MG/ML VIAL IV PRN (22:45)
[2020-12-05] MEDS ORDERED: HYDRALAZINE 10 MG in SODIUM CHLORIDE 0.9% 49.5 ML IV PRN (23:00)
[2020-12-05] MEDS: LATANOPROST 0.005% OPHTH DROPS 2.5ML BOTHEYE SCH (23:49)
[2020-12-06] MEDS: PANTOPRAZOLE 40MG DR TABLET PO SCH (06:05)
[2020-12-06 08:25] VITALS: BP 110/44
[2020-12-06] MEDS: ENOXAPARIN 60MG/0.6ML SYR SUBCUT SCH (08:57)
[2020-12-06] MEDS: AMLODIPINE 10MG TABLET PO SCH (09:05)
[2020-12-06] MEDS ORDERED: CEFTRIAXONE 1,000 MG in DEXTROSE 5% WATER 50 ML IV SCH (12:00)
[2020-12-06 20:00] VITALS: BP 101/44
[2020-12-06] MEDS: LATANOPROST 0.005% OPHTH DROPS 2.5ML BOTHEYE SCH (20:29)
[2020-12-06] MEDS ORDERED: LEVOFLOXACIN 500MG TABLET PO NR (21:45)
[2020-12-07] MEDS: PANTOPRAZOLE 40MG DR TABLET PO SCH (06:23)
[2020-12-07 07:22] VITALS: BP 84/48
[2020-12-07] MEDS: ENOXAPARIN 60MG/0.6ML SYR SUBCUT SCH (09:00)
[2020-12-07] MEDS: AMLODIPINE 10MG TABLET PO SCH (11:57)
[2020-12-07] MEDS: LACTULOSE 20G/30ML UDC PO PRN ×2 (12:49→18:11)
[2020-12-07] MEDS: DOCUSATE SODIUM 100MG CAPSULE PO SCH (17:17)
[2020-12-07 20:00] VITALS: BP 106/58
[2020-12-07] MEDS: LATANOPROST 0.005% OPHTH DROPS 2.5ML BOTHEYE SCH (22:26)
[2020-12-07] MEDS: LEVOFLOXACIN 250MG TABLET PO SCH (22:26)
[2020-12-08] MEDS: PANTOPRAZOLE 40MG DR TABLET PO SCH (06:15)
[2020-12-08 07:59] VITALS: BP 118/62
[2020-12-08] MEDS: DOCUSATE SODIUM 100MG CAPSULE PO SCH ×2 (08:58→17:20)
[2020-12-08] MEDS: ENOXAPARIN 60MG/0.6ML SYR SUBCUT SCH (08:59)
[2020-12-08] MEDS: AMLODIPINE 10MG TABLET PO SCH (08:59)
[2020-12-08 20:00] VITALS: BP 90/50
[2020-12-08] MEDS: LEVOFLOXACIN 250MG TABLET PO SCH (21:02)
[2020-12-08] MEDS: LATANOPROST 0.005% OPHTH DROPS 2.5ML BOTHEYE SCH (21:02)
[2020-12-08 22:35] VITALS: BP 114/61
[2020-12-09] MEDS: PANTOPRAZOLE 40MG DR TABLET PO SCH (06:14)
[2020-12-09 07:58] VITALS: BP 115/55
[2020-12-09] MEDS: AMLODIPINE 10MG TABLET PO SCH (09:23)
[2020-12-09] MEDS: DOCUSATE SODIUM 100MG CAPSULE PO SCH ×2 (09:23→18:36)
[2020-12-09] MEDS: ENOXAPARIN 60MG/0.6ML SYR SUBCUT SCH (09:24)
[2020-12-09 10:53] VITALS: BP 135/75
[2020-12-09] MEDS: METOPROLOL TARTRATE 25MG TABLET PO SCH ×2 (14:00→22:23)
[2020-12-09 20:00] VITALS: BP 109/60
[2020-12-09] MEDS: LATANOPROST 0.005% OPHTH DROPS 2.5ML BOTHEYE SCH (20:41)
[2020-12-09] MEDS: LEVOFLOXACIN 250MG TABLET PO SCH (22:22)
[2020-12-10 00:43] LABS: CLARITY URINE CLOUDY (CLEAR); COLOR URINE ORANGE (YELLOW); KETONES URINE NEGATIVE (NEGATIVE); LEUKOCYTE ESTERASE URINE 1+ (NEGATIVE); NITRITE URINE NEGATIVE (NEGATIVE); OCCULT BLOOD URINE 3+ (NEGATIVE); PH URINE 5.5 (4.5-8.0); PROTEIN URINE 2+ (NEGATIVE); SPECIFIC GRAVITY URINE 1.016 (1.005-1.030)
[2020-12-10] MEDS: PANTOPRAZOLE 40MG DR TABLET PO SCH (06:11)
[2020-12-10 08:03] VITALS: BP 100/52
[2020-12-10] MEDS: METOPROLOL TARTRATE 25MG TABLET PO SCH ×2 (09:00→21:02)
[2020-12-10] MEDS: DOCUSATE SODIUM 100MG CAPSULE PO SCH ×4 (09:00→16:55)
[2020-12-10] MEDS: ENOXAPARIN 60MG/0.6ML SYR SUBCUT SCH (09:00)
[2020-12-10] MEDS: AMLODIPINE 10MG TABLET PO SCH (09:00)
[2020-12-10 20:00] VITALS: BP 112/64
[2020-12-10] MEDS: LEVOFLOXACIN 250MG TABLET PO SCH (21:02)
[2020-12-10] MEDS: LATANOPROST 0.005% OPHTH DROPS 2.5ML BOTHEYE SCH (21:02)
[2020-12-11] MEDS: PANTOPRAZOLE 40MG DR TABLET PO SCH (06:10)
[2020-12-11 08:19] VITALS: BP 114/58
[2020-12-11] MEDS: AMLODIPINE 10MG TABLET PO SCH (08:48)
[2020-12-11] MEDS: DOCUSATE SODIUM 100MG CAPSULE PO SCH ×2 (08:48→18:03)
[2020-12-11] MEDS: METOPROLOL TARTRATE 25MG TABLET PO SCH ×2 (08:48→21:00)
[2020-12-11 20:00] VITALS: BP 90/44
[2020-12-11] MEDS: LATANOPROST 0.005% OPHTH DROPS 2.5ML BOTHEYE SCH (21:04)
[2020-12-11] MEDS: LEVOFLOXACIN 250MG TABLET PO SCH (21:04)
[2020-12-12] MEDS: PANTOPRAZOLE 40MG DR TABLET PO SCH (06:06)
[2020-12-12] MEDS ORDERED: LACTULOSE 20G/30ML UDC PO SCH (07:00)
[2020-12-12 08:00] VITALS: BP 114/64
[2020-12-12] MEDS: DOCUSATE SODIUM 100MG CAPSULE PO SCH ×2 (09:31→16:54)
[2020-12-12] MEDS: METOPROLOL TARTRATE 25MG TABLET PO SCH ×2 (09:31→20:07)
[2020-12-12] MEDS: AMLODIPINE 10MG TABLET PO SCH (09:31)
[2020-12-12 20:00] VITALS: BP 97/58
[2020-12-12] MEDS: LATANOPROST 0.005% OPHTH DROPS 2.5ML BOTHEYE SCH (20:06)
[2020-12-13] MEDS: PANTOPRAZOLE 40MG DR TABLET PO SCH (06:06)
[2020-12-13 08:00] VITALS: BP 116/69
[2020-12-13] MEDS: METOPROLOL TARTRATE 25MG TABLET PO SCH (08:42)
[2020-12-13] MEDS: DOCUSATE SODIUM 100MG CAPSULE PO SCH (08:42)
[2020-12-13] MEDS: AMLODIPINE 10MG TABLET PO SCH (08:42)
[2020-12-13] MEDS ORDERED: LATA2.5D14 EACHEYE (10:34)
[2020-12-13] MEDS ORDERED: PANT40TA51 PO (10:34)
[2020-12-13] MEDS ORDERED: AMLO10TA80 PO ×2 (10:34)
[2020-12-13] MEDS ORDERED: ASPI-986 PO (10:34)
[2020-12-13] MEDS ORDERED: METO25TA6 PO (10:34)
[2020-12-13 11:47] VITALS: BP 118/69
== END 2020-12-13 14:15 | disposition home health service (06) | DRG 947 ==
LOC: OBSVTOIN 21:55 → UNDOADMOB 22:34
PROVIDERS: ADMIT Psychiatry & Neurology Neurology; ATTEND Internal Medicine
DX: R53.81 Other malaise (principal); I50.33 Acute on chronic diastolic (congestive) heart failure; A41.9 Sepsis, unspecified organism; K29.61 Other gastritis with bleeding; J96.01 Acute respiratory failure with hypoxia; K56.609 Unspecified intestinal obstruction, unspecified as to partial versus complete obstruction; N17.9 Acute kidney failure, unspecified; N13.6 Pyonephrosis; I82.432 Acute embolism and thrombosis of left popliteal vein; I13.0 Hypertensive heart and chronic kidney disease with heart failure and stage 1 through stage 4 chronic kidney disease, or unspecified chronic kidney disease; D76.3 Other histiocytosis syndromes; G93.40 Encephalopathy, unspecified; F03.90 Unspecified dementia, unspecified severity, without behavioral disturbance, psychotic disturbance, mood disturbance, and anxiety; I27.20 Pulmonary hypertension, unspecified; D64.9 Anemia, unspecified; I48.91 Unspecified atrial fibrillation; F39 Unspecified mood [affective] disorder; K31.89 Other diseases of stomach and duodenum; N18.9 Chronic kidney disease, unspecified; R31.0 Gross hematuria; I16.0 Hypertensive urgency; E86.1 Hypovolemia; I49.3 Ventricular premature depolarization; Z86.73 Personal history of transient ischemic attack (TIA), and cerebral infarction without residual deficits; Z85.528 Personal history of other malignant neoplasm of kidney
CPT/HCPCS: 81003; 92523; 92610; 93005; 95816; 97110; 97116; 97162; 97166; 97530; 97535; J0696; J1650; J7040; J7060

== ENCOUNTER 2020-12-20 22:02 | Inpatient (IN) | payer MEDICARE, MEDICAID ==
[~2020-12-20] VITALS: Ht 162.6 cm; Wt 42.6 kg
[~2020-12-20 22:02] MED LIST changes: +METO25TA6 PO; +PANT40TA51 PO
[2020-12-20] MEDS ORDERED: ASPIRIN 81MG TABLET PO ONE (23:00)
[2020-12-20] MEDS ORDERED: MORPHINE SULFATE 2 MG/ML CPJ (NOT FOR IM USE) IV ONE (23:00)
[2020-12-20] MEDS ORDERED: ONDANSETRON HCL 4MG/2ML INJ IV ONE (23:00)
[2020-12-20 23:13] LABS: CLARITY URINE CLOUDY (CLEAR); COLOR URINE YELLOW (YELLOW); KETONES URINE 1+ (NEGATIVE); LEUKOCYTE ESTERASE URINE TRACE (NEGATIVE); NITRITE URINE NEGATIVE (NEGATIVE); OCCULT BLOOD URINE NEGATIVE (NEGATIVE); PH URINE 5.5 (4.5-8.0); PROTEIN URINE 1+ (NEGATIVE); SPECIFIC GRAVITY URINE 1.015 (1.005-1.030)
[2020-12-20 23:42] LABS: BASOPHILS % 0.6 % (0.0-2.0); EOSINOPHILS % 0.6 % (0.0-5.0); HEMATOCRIT. 28.9 % (36.0-48.0); HEMOGLOBIN. 9.9 g/dL (12.0-16.0); LYMPHOCYTES % 20.9 % (20.0-50.0); MEAN CORPUSCULAR HEMOGLOBIN 30.8 pg (28.0-32.0); MEAN CORPUSCULAR VOLUME 90.5 fL (81.0-99.0); MEAN PLATELET VOLUME 7.6 fl (7.4-10.4); NEUTROPHILS % 67.9 % (40.0-76.0); PLATELET 238 x1000/uL (130-400)
[2020-12-20 23:50] LABS: CHLORIDE 102 mEq/L (98-107)
[2020-12-21] VITALS (12 sets, daily range): BP systolic 86–142; BP diastolic 35–74
[2020-12-21] MEDS ORDERED: CEFTRIAXONE 1 G PREMIX 50 ML IV SCH (01:45)
[2020-12-21] MEDS ORDERED: ENOXAPARIN 60MG/0.6ML SYR SUBCUT ONE (01:45)
[2020-12-21] MEDS ORDERED: CEFTRIAXONE 1,000 MG in DEXTROSE 5% WATER 50 ML IV SCH (02:00)
[2020-12-21] MEDS ORDERED: MORPHINE SULFATE 2 MG/ML CPJ (NOT FOR IM USE) IV PRN (03:45)
[2020-12-21] MEDS: METRONIDAZOLE 500 MG PREMIX 100 ML IV SCH ×3 (05:26→21:58)
[2020-12-21] MEDS: PANTOPRAZOLE 40MG DR TABLET PO SCH (06:16)
[2020-12-21] MEDS ORDERED: LEVOFLOXACIN 500MG PREMIX 100 ML IV SCH (08:00)
[2020-12-21] MEDS ORDERED: ENOXAPARIN 40MG/0.4ML SYR SUBCUT SCH (09:00)
[2020-12-21] MEDS ORDERED: ASPIRIN 81MG TABLET PO SCH (09:00)
[2020-12-21] MEDS ORDERED: ENOXAPARIN 30MG/0.3ML SYR SUBCUT SCH (09:00)
[2020-12-21] MEDS: METOPROLOL TARTRATE 25MG TABLET PO SCH ×2 (09:00→22:02)
[2020-12-21] MEDS ORDERED: NALOXONE HCL 0.4MG/ML VIAL IV PRN (12:45)
[2020-12-21] MEDS: DOCUSATE SODIUM 250MG CAPSULE PO SCH (21:58)
[2020-12-21] MEDS: LATANOPROST 0.005% OPHTH DROPS 2.5ML EACHEYE SCH (22:02)
[2020-12-22] VITALS (12 sets, daily range): BP systolic 94–131; BP diastolic 40–67
[2020-12-22] MEDS: PANTOPRAZOLE 40MG DR TABLET PO SCH (06:04)
[2020-12-22] MEDS: METRONIDAZOLE 500 MG PREMIX 100 ML IV SCH ×2 (06:04→14:33)
[2020-12-22] MEDS: DOCUSATE SODIUM 250MG CAPSULE PO SCH (09:28)
[2020-12-22] MEDS: LEVOFLOXACIN 250MG PREMIX 50 ML IV SCH (09:28)
[2020-12-22] MEDS: METOPROLOL TARTRATE 25MG TABLET PO SCH ×2 (09:29→21:00)
[2020-12-22] MEDS ORDERED: LACTULOSE 20G/30ML UDC PO NR (14:30)
[2020-12-22] MEDS ORDERED: BISACODYL 10MG SUPP PR NR (14:30)
[2020-12-22] MEDS: DOCUSATE SODIUM SUGAR FREE 100MG/10ML UDC PO SCH (17:17)
[2020-12-22] MEDS ORDERED: SORBITOL 70% SOLN 30ML PO NR (18:45)
[2020-12-22] MEDS: LATANOPROST 0.005% OPHTH DROPS 2.5ML EACHEYE SCH (21:47)
[2020-12-23] VITALS (13 sets, daily range): BP systolic 93–126; BP diastolic 29–67
[2020-12-23] MEDS: DOCUSATE SODIUM SUGAR FREE 100MG/10ML UDC PO SCH ×2 (09:15→18:07)
[2020-12-23] MEDS: LEVOFLOXACIN 250MG PREMIX 50 ML IV SCH (09:15)
[2020-12-23] MEDS: METOPROLOL TARTRATE 25MG TABLET PO SCH ×2 (09:15→22:13)
[2020-12-23] MEDS: FAMOTIDINE 20MG TABLET PO SCH (09:16)
[2020-12-23 16:13] LABS: BASOPHILS % 0.3 % (0.0-2.0); EOSINOPHILS % 0.5 % (0.0-5.0); HEMATOCRIT. 27.8 % (36.0-48.0); HEMOGLOBIN. 9.6 g/dL (12.0-16.0); LYMPHOCYTES % 26.8 % (20.0-50.0); MEAN CORPUSCULAR HEMOGLOBIN 31.5 pg (28.0-32.0); MEAN CORPUSCULAR VOLUME 90.9 fL (81.0-99.0); MEAN PLATELET VOLUME 7.7 fl (7.4-10.4); MONOCYTES % 11.9 % (2.0-8.0); NEUTROPHILS % 60.5 % (40.0-76.0); PLATELET 250 x1000/uL (130-400); RED BLOOD CELL COUNT 3.06 mill/uL (4.2-5.4); RED CELL DISTRIBUTION WIDTH 15.4 % (11.6-14.6)
[2020-12-23 16:30] LABS: CHLORIDE 105 mEq/L (98-107)
[2020-12-23] MEDS ORDERED: POTASSIUM CHLORIDE 20MEQ/PACKET PO NR (19:30)
[2020-12-23] MEDS ORDERED: ENOXAPARIN 40MG/0.4ML SYR SUBCUT NR (21:00)
[2020-12-23] MEDS: LATANOPROST 0.005% OPHTH DROPS 2.5ML EACHEYE SCH (22:12)
[2020-12-24] VITALS (12 sets, daily range): BP systolic 92–120; BP diastolic 35–77
[2020-12-24] MEDS: DOCUSATE SODIUM SUGAR FREE 100MG/10ML UDC PO SCH ×2 (08:10→16:08)
[2020-12-24] MEDS: FAMOTIDINE 20MG TABLET PO SCH (08:10)
[2020-12-24] MEDS: METOPROLOL TARTRATE 25MG TABLET PO SCH ×2 (08:10→21:00)
[2020-12-24] MEDS: LEVOFLOXACIN 250MG PREMIX 50 ML IV SCH (08:11)
[2020-12-24] MEDS: ENOXAPARIN 40MG/0.4ML SYR SUBCUT SCH (09:02)
[2020-12-24] MEDS: LATANOPROST 0.005% OPHTH DROPS 2.5ML EACHEYE SCH (21:00)
[2020-12-25] VITALS (7 sets, daily range): BP systolic 98–116; BP diastolic 54–80
[2020-12-25] MEDS: METOPROLOL TARTRATE 25MG TABLET PO SCH (08:41)
[2020-12-25] MEDS: DOCUSATE SODIUM SUGAR FREE 100MG/10ML UDC PO SCH ×2 (09:34→16:12)
[2020-12-25] MEDS: FAMOTIDINE 20MG TABLET PO SCH (09:34)
[2020-12-25] MEDS: LEVOFLOXACIN 250MG PREMIX 50 ML IV SCH (09:35)
[2020-12-25] MEDS: ENOXAPARIN 40MG/0.4ML SYR SUBCUT SCH (09:35)
[2020-12-25] MEDS ORDERED: ONDANSETRON 4MG ODT PO PRN (15:30)
== END 2020-12-25 20:51 | DRG 205 ==
LOC: ER 22:02 → 3WST 23:02 → ENRESERV 12-21 00:23 → 6EST 12-24 21:11
PROVIDERS: ADMIT Internal Medicine; ATTEND Internal Medicine
DX: M94.0 Chondrocostal junction syndrome [Tietze] (principal); J96.01 Acute respiratory failure with hypoxia; E43 Unspecified severe protein-calorie malnutrition; I50.33 Acute on chronic diastolic (congestive) heart failure; N39.0 Urinary tract infection, site not specified; I82.432 Acute embolism and thrombosis of left popliteal vein; I13.0 Hypertensive heart and chronic kidney disease with heart failure and stage 1 through stage 4 chronic kidney disease, or unspecified chronic kidney disease; E87.1 Hypo-osmolality and hyponatremia; G93.40 Encephalopathy, unspecified; Z68.1 Body mass index [BMI] 19.9 or less, adult; D64.9 Anemia, unspecified; N18.9 Chronic kidney disease, unspecified; Z60.2 Problems related to living alone; I16.0 Hypertensive urgency; I49.3 Ventricular premature depolarization; I27.20 Pulmonary hypertension, unspecified; K59.00 Constipation, unspecified; Z82.49 Family history of ischemic heart disease and other diseases of the circulatory system; Z86.73 Personal history of transient ischemic attack (TIA), and cerebral infarction without residual deficits; Z79.82 Long term (current) use of aspirin; Z79.899 Other long term (current) drug therapy; R00.0 Tachycardia, unspecified
CPT/HCPCS: 36415; 74018; 74176; 80048; 80053; 81003; 83605; 84484; 85025; 86850; 86900; 87077; 92610; 93005; 93306; 93970; 97162; 99285; A6261; J0696; J1650; J1956; J2270; J2405; J3490; J7060; Q0162

== ENCOUNTER 2021-01-14 20:26 | Inpatient (IN) | payer MEDICARE, MEDICAID ==
[~2021-01-14] VITALS: Ht 152.4 cm; Wt 58.5 kg
[~2021-01-14 20:26] MED LIST changes: -ASPI-986 PO
[2021-01-14] MEDS ORDERED: SODIUM CHLORIDE 0.9% 1000ML BAG (SEPSIS BOLUS) IV ONE (21:45)
[2021-01-14] MEDS: SODIUM CHLORIDE 0.9% 1,000 ML IV SCH (22:30)
[2021-01-14 22:36] LABS: BASOPHILS % 0.2 % (0.0-2.0); EOSINOPHILS % 0.5 % (0.0-5.0); HEMATOCRIT. 31.4 % (36.0-48.0); HEMOGLOBIN. 10.4 g/dL (12.0-16.0); LYMPHOCYTES % 28.2 % (20.0-50.0); MEAN CORPUSCULAR HEMOGLOBIN 30.3 pg (28.0-32.0); MEAN CORPUSCULAR VOLUME 91.3 fL (81.0-99.0); MEAN PLATELET VOLUME 7.4 fl (7.4-10.4); NEUTROPHILS % 63.1 % (40.0-76.0); PLATELET 348 x1000/uL (130-400); RED BLOOD CELL COUNT 3.44 mill/uL (4.2-5.4); RED CELL DISTRIBUTION WIDTH 16.3 % (11.6-14.6)
[2021-01-14 22:43] LABS: CHLORIDE 103 mEq/L (98-107); INR 1.1; PROTHROMBIN TIME 11.8 sec (9.6-11.0)
[2021-01-14 22:51] LABS: CREATINE KINASE 23 IU/L (26-192)
[2021-01-14 23:16] LABS: CLARITY URINE TURBID (CLEAR); COLOR URINE RED (YELLOW); KETONES URINE 1+ (NEGATIVE); LEUKOCYTE ESTERASE URINE 3+ (NEGATIVE); NITRITE URINE POSITIVE (NEGATIVE); OCCULT BLOOD URINE 3+ (NEGATIVE); PROTEIN URINE 3+ (NEGATIVE); SPECIFIC GRAVITY URINE 1.017 (1.005-1.030)
[2021-01-15] VITALS: BP_SYST 125; BP_SYST 142; BP_DIAS 80; BP_DIAS 86
[2021-01-15 00:30] VITALS: BP 134/77
[2021-01-15 08:00] VITALS: BP 131/85
[2021-01-15] MEDS ORDERED: CEFTRIAXONE 1,000 MG in DEXTROSE 5% WATER 50 ML IV SCH (08:00)
[2021-01-15] MEDS: METOPROLOL TARTRATE 25MG TABLET PO SCH ×2 (08:53→21:00)
[2021-01-15 12:00] VITALS: BP 112/66
[2021-01-15] MEDS ORDERED: INFLUENZA VACCINE 05/PF 0.5 ML SYRINGE IM ONE (12:00)
[2021-01-15] MEDS: MEGESTROL ACETATE 400 MG/10 ML UDC PO SCH (13:04)
[2021-01-15] MEDS: SODIUM CHLORIDE 0.9% 1,000 ML IV SCH (13:04)
[2021-01-15 16:00] VITALS: BP 96/66
[2021-01-15 17:45] LABS: CHLORIDE 106 mEq/L (98-107)
[2021-01-15 17:48] LABS: BASOPHILS % 0.8 % (0.0-2.0); EOSINOPHILS % 0.8 % (0.0-5.0); HEMATOCRIT. 30.6 % (36.0-48.0); HEMOGLOBIN. 10.1 g/dL (12.0-16.0); LYMPHOCYTES % 27.2 % (20.0-50.0); MEAN CORPUSCULAR HEMOGLOBIN 30.7 pg (28.0-32.0); MEAN CORPUSCULAR VOLUME 92.6 fL (81.0-99.0); MONOCYTES % 7.1 % (2.0-8.0); NEUTROPHILS % 64.1 % (40.0-76.0); RED BLOOD CELL COUNT 3.31 mill/uL (4.2-5.4); RED CELL DISTRIBUTION WIDTH 16.2 % (11.6-14.6)
[2021-01-15 20:00] VITALS: BP 99/57
[2021-01-16] VITALS: BP 116/59
[2021-01-16] MEDS: SODIUM CHLORIDE 0.9% 1,000 ML IV SCH ×2 (01:10→14:30)
[2021-01-16 04:00] VITALS: BP 120/68
[2021-01-16] MEDS: MEGESTROL ACETATE 400 MG/10 ML UDC PO SCH (09:00)
[2021-01-16] MEDS: METOPROLOL TARTRATE 25MG TABLET PO SCH ×2 (09:00→21:00)
[2021-01-16 12:00] VITALS: BP 135/72
[2021-01-16 16:00] VITALS: BP 124/70
[2021-01-16] MEDS ORDERED: LEVOFLOXACIN 250MG TABLET PO SCH (17:00)
[2021-01-16 20:00] VITALS: BP 128/85
[2021-01-16] MEDS ORDERED: LEVOFLOXACIN 500MG TABLET PO NR (21:00)
[2021-01-17] VITALS: BP 151/87
[2021-01-17] MEDS: SODIUM CHLORIDE 0.9% 1,000 ML IV SCH ×2 (03:46→17:10)
[2021-01-17 04:00] VITALS: BP 151/74
[2021-01-17] MEDS: METOPROLOL TARTRATE 25MG TABLET PO SCH ×2 (10:31→21:00)
[2021-01-17] MEDS: MEGESTROL ACETATE 400 MG/10 ML UDC PO SCH (10:31)
[2021-01-17] MEDS: LEVOFLOXACIN 250MG TABLET PO SCH ×2 (11:00→12:06)
[2021-01-17 12:00] VITALS: BP 101/58
[2021-01-17] MEDS ORDERED: LEVETIRACETAM 500 MG in SODIUM CHLORIDE 0.9% 100 ML IV SCH (12:30)
[2021-01-17 16:00] VITALS: BP 96/54
[2021-01-17 20:00] VITALS: BP 104/53
[2021-01-18] VITALS: BP 101/77
[2021-01-18 04:00] VITALS: BP 119/77
[2021-01-18] MEDS: SODIUM CHLORIDE 0.9% 1,000 ML IV SCH ×2 (06:30→19:50)
[2021-01-18] MEDS: MEGESTROL ACETATE 400 MG/10 ML UDC PO SCH (09:00)
[2021-01-18] MEDS: METOPROLOL TARTRATE 25MG TABLET PO SCH ×2 (09:00→20:38)
[2021-01-18] MEDS ORDERED: CEFAZOLIN 1000MG PREMIX 50 ML IV NR ×2 (09:30→11:30)
[2021-01-18 12:00] VITALS: BP 103/67
[2021-01-18 16:00] VITALS: BP 125/69
[2021-01-18] MEDS ORDERED: GENTAMICIN 100MG PREMIX 50 ML IV NR (16:00)
[2021-01-18 20:00] VITALS: BP 127/86
[2021-01-18] MEDS: LATANOPROST 0.005% OPHTH DROPS 2.5ML BOTHEYE SCH (20:38)
[2021-01-19] VITALS: BP 111/68
[2021-01-19 04:00] VITALS: BP 103/77
[2021-01-19] MEDS: METOPROLOL TARTRATE 25MG TABLET PO SCH ×3 (08:54→21:00)
[2021-01-19] MEDS: SODIUM CHLORIDE 0.9% 1,000 ML IV SCH ×2 (08:56→22:22)
[2021-01-19] MEDS: MEGESTROL ACETATE 400 MG/10 ML UDC PO SCH (08:56)
[2021-01-19] MEDS ORDERED: CEFAZOLIN 1000MG PREMIX 50 ML IV NR (10:00)
[2021-01-19 12:00] VITALS: BP 111/78
[2021-01-19] MEDS ORDERED: GENTAMICIN 100MG PREMIX 50 ML IV NR (12:00)
[2021-01-19] MEDS ORDERED: LIDOCAINE HCL 1% 20ML VIAL (Pyxis) INJ ONE ×2 (12:19→18:18)
[2021-01-19 16:00] VITALS: BP 113/76
[2021-01-19] MEDS ORDERED: PROPOFOL 200MG/20ML VIAL IV ONE (17:36)
[2021-01-19] MEDS ORDERED: ONDANSETRON HCL 4MG/2ML INJ ONE (18:18)
[2021-01-19] MEDS ORDERED: CEFAZOLIN SODIUM 1000MG/VIAL ONE (18:18)
[2021-01-19] MEDS: LATANOPROST 0.005% OPHTH DROPS 2.5ML BOTHEYE SCH (22:21)
[2021-01-20] VITALS: BP 106/55
[2021-01-20 04:00] VITALS: BP 87/63
[2021-01-20] MEDS: METOPROLOL TARTRATE 25MG TABLET PO SCH ×2 (09:00→20:44)
[2021-01-20] MEDS: MEGESTROL ACETATE 400 MG/10 ML UDC PO SCH (09:54)
[2021-01-20] MEDS ORDERED: GENTAMICIN 100MG PREMIX 50 ML IV NR (10:00)
[2021-01-20] MEDS: SODIUM CHLORIDE 0.9% 1,000 ML IV SCH (11:50)
[2021-01-20 12:00] VITALS: BP 131/72
[2021-01-20 16:00] VITALS: BP 89/63
[2021-01-20 20:00] VITALS: BP 120/73
[2021-01-20] MEDS: LATANOPROST 0.005% OPHTH DROPS 2.5ML BOTHEYE SCH (20:44)
[2021-01-21] VITALS: BP 126/63
[2021-01-21] MEDS: SODIUM CHLORIDE 0.9% 1,000 ML IV SCH ×2 (01:29→13:34)
[2021-01-21 04:00] VITALS: BP 100/64
[2021-01-21 05:50] LABS: BASOPHILS % 0.1 % (0.0-2.0); EOSINOPHILS % 0.5 % (0.0-5.0); HEMATOCRIT. 24.2 % (36.0-48.0); HEMOGLOBIN. 8.1 g/dL (12.0-16.0); LYMPHOCYTES % 15.6 % (20.0-50.0); MEAN CORPUSCULAR HEMOGLOBIN 30.7 pg (28.0-32.0); MEAN CORPUSCULAR VOLUME 92.2 fL (81.0-99.0); MEAN PLATELET VOLUME 7.2 fl (7.4-10.4); MONOCYTES % 7.1 % (2.0-8.0); NEUTROPHILS % 76.7 % (40.0-76.0); PLATELET 193 x1000/uL (130-400); RED BLOOD CELL COUNT 2.63 mill/uL (4.2-5.4); RED CELL DISTRIBUTION WIDTH 16.3 % (11.6-14.6)
[2021-01-21 05:58] LABS: CHLORIDE 115 mEq/L (98-107)
[2021-01-21] MEDS: MEGESTROL ACETATE 400 MG/10 ML UDC PO SCH (09:33)
[2021-01-21] MEDS: METOPROLOL TARTRATE 25MG TABLET PO SCH ×2 (09:34→20:42)
[2021-01-21 12:00] VITALS: BP 130/77
[2021-01-21] MEDS: GENTAMICIN 80MG PREMIX 100 ML IV SCH (13:34)
[2021-01-21 16:00] VITALS: BP 93/52
[2021-01-21 20:00] VITALS: BP 97/58
[2021-01-21] MEDS: LATANOPROST 0.005% OPHTH DROPS 2.5ML BOTHEYE SCH (20:40)
[2021-01-22] VITALS: BP 119/49
[2021-01-22] MEDS: SODIUM CHLORIDE 0.9% 1,000 ML IV SCH (03:42)
[2021-01-22 04:00] VITALS: BP 114/52
[2021-01-22] MEDS: METOPROLOL TARTRATE 25MG TABLET PO SCH ×2 (08:51→20:51)
[2021-01-22] MEDS: MEGESTROL ACETATE 400 MG/10 ML UDC PO SCH (08:51)
[2021-01-22] MEDS: GENTAMICIN 80MG PREMIX 100 ML IV SCH (09:14)
[2021-01-22 10:11] LABS: BASOPHILS % 0.1 % (0.0-2.0); EOSINOPHILS % 0.5 % (0.0-5.0); HEMATOCRIT. 22.7 % (36.0-48.0); HEMOGLOBIN. 7.4 g/dL (12.0-16.0); MEAN CORPUSCULAR HEMOGLOBIN 30.1 pg (28.0-32.0); MEAN CORPUSCULAR VOLUME 92.6 fL (81.0-99.0); MEAN PLATELET VOLUME 7.6 fl (7.4-10.4); MONOCYTES % 8.7 % (2.0-8.0); NEUTROPHILS % 76.7 % (40.0-76.0); PLATELET 168 x1000/uL (130-400); RED BLOOD CELL COUNT 2.45 mill/uL (4.2-5.4); RED CELL DISTRIBUTION WIDTH 16.8 % (11.6-14.6)
[2021-01-22 10:24] LABS: CHLORIDE 119 mEq/L (98-107)
[2021-01-22 11:16] LABS: TOTAL IRON BINDING CAPACITY 121 ug/dL (250-450)
[2021-01-22 12:00] VITALS: BP 105/58
[2021-01-22] MEDS: DEXTROSE 5% WATER 1,000 ML IV SCH (15:15)
[2021-01-22 16:00] VITALS: BP 126/60
[2021-01-22 20:00] VITALS: BP 124/57
[2021-01-22] MEDS: LATANOPROST 0.005% OPHTH DROPS 2.5ML BOTHEYE SCH (20:51)
[2021-01-23] VITALS: BP 112/68
[2021-01-23 04:00] VITALS: BP 133/78
[2021-01-23 08:00] VITALS: BP 116/60
[2021-01-23] MEDS: DEXTROSE 5% WATER 1,000 ML IV SCH (08:46)
[2021-01-23] MEDS: METOPROLOL TARTRATE 25MG TABLET PO SCH ×2 (08:47→22:36)
[2021-01-23] MEDS: MEGESTROL ACETATE 400 MG/10 ML UDC PO SCH (08:47)
[2021-01-23] MEDS: GENTAMICIN 80MG PREMIX 100 ML IV SCH (09:09)
[2021-01-23 12:00] VITALS: BP 130/70
[2021-01-23 16:00] VITALS: BP 110/48
[2021-01-23 20:00] VITALS: BP 119/85
[2021-01-23] MEDS: LATANOPROST 0.005% OPHTH DROPS 2.5ML BOTHEYE SCH (22:37)
[2021-01-24] MEDS: DEXTROSE 5% WATER 1,000 ML IV SCH (00:35)
[2021-01-24 08:00] VITALS: BP 100/52
[2021-01-24 08:06] LABS: EOSINOPHILS % 0.1 % (0.0-5.0); HEMATOCRIT. 23.6 % (36.0-48.0); HEMOGLOBIN. 7.7 g/dL (12.0-16.0); LYMPHOCYTES % 16.6 % (20.0-50.0); MEAN CORPUSCULAR HEMOGLOBIN 29.5 pg (28.0-32.0); MEAN CORPUSCULAR VOLUME 90.4 fL (81.0-99.0); MEAN PLATELET VOLUME 7.3 fl (7.4-10.4); MONOCYTES % 8.4 % (2.0-8.0); NEUTROPHILS % 74.9 % (40.0-76.0); PLATELET 185 x1000/uL (130-400); RED CELL DISTRIBUTION WIDTH 16.5 % (11.6-14.6)
[2021-01-24 08:13] LABS: CHLORIDE 103 mEq/L (98-107)
[2021-01-24 08:23] LABS: GENTAMICIN RANDOM 1.3 ug/mL
[2021-01-24] MEDS: METOPROLOL TARTRATE 25MG TABLET PO SCH (09:00)
[2021-01-24] MEDS: MEGESTROL ACETATE 400 MG/10 ML UDC PO SCH (09:20)
[2021-01-24 11:15] VITALS: BP 100/52
== END 2021-01-24 16:08 | DRG 640 ==
LOC: ER 20:26 → ENRESERV 23:15 → 6EST 01-15 00:06
PROVIDERS: ADMIT Internal Medicine Nephrology; ATTEND Internal Medicine Nephrology
PROC: 0DH63UZ Insertion of Feeding Device into Stomach, Percutaneous Approach (ICD-10-PCS; principal; 2021-01-19)
PROC: 02HV33Z Insertion of Infusion Device into Superior Vena Cava, Percutaneous Approach (ICD-10-PCS; 2021-01-19)
PROC: B548ZZA Ultrasonography of Superior Vena Cava, Guidance (ICD-10-PCS; 2021-01-19)
PROC: B5181ZA Fluoroscopy of Superior Vena Cava using Low Osmolar Contrast, Guidance (ICD-10-PCS; 2021-01-19)
DX: R62.7 Adult failure to thrive (principal); E43 Unspecified severe protein-calorie malnutrition; N39.0 Urinary tract infection, site not specified; R13.12 Dysphagia, oropharyngeal phase; I27.20 Pulmonary hypertension, unspecified; I10 Essential (primary) hypertension; D64.9 Anemia, unspecified; K29.70 Gastritis, unspecified, without bleeding; G30.9 Alzheimer's disease, unspecified; F02.80 Dementia in other diseases classified elsewhere, unspecified severity, without behavioral disturbance, psychotic disturbance, mood disturbance, and anxiety; B96.5 Pseudomonas (aeruginosa) (mallei) (pseudomallei) as the cause of diseases classified elsewhere; K44.9 Diaphragmatic hernia without obstruction or gangrene; Z20.822 Contact with and (suspected) exposure to COVID-19; I49.1 Atrial premature depolarization; R31.9 Hematuria, unspecified; Z53.20 Procedure and treatment not carried out because of patient's decision for unspecified reasons; Z79.899 Other long term (current) drug therapy; Z86.73 Personal history of transient ischemic attack (TIA), and cerebral infarction without residual deficits; Z86.718 Personal history of other venous thrombosis and embolism; Z85.528 Personal history of other malignant neoplasm of kidney; Z68.25 Body mass index [BMI] 25.0-25.9, adult
CPT/HCPCS: 36415; 36573; 71045; 80048; 80053; 80170; 81003; 82270; 82550; 83540; 83550; 83605; 83735; 84145; 84443; 84484; 85025; 85044; 86850; 86900; 87186; 87426; 92610; 93005; 93970; 99285; C1725; C1769; J0690; J0696; J1580; J2405; J2704; J3490; J7030; J7060; J7070; A4315

== ENCOUNTER 2021-03-24 10:54 | Inpatient (IN) | payer MEDICARE, MEDICAID ==
[~2021-03-24] VITALS: Ht 160 cm; Wt 43.1 kg
[~2021-03-24 10:54] MED LIST changes: +BISA10SU62 RC; +FAMO20TA8 PO; +HYDR-4001 GT; +LACT10SO7 PO; +MIDO10TA PO; +MOM GT; +MULT-230 GT
[2021-03-24 12:40] LABS: BASOPHILS % 0.1 % (0.0-2.0); EOSINOPHILS % 0.5 % (0.0-5.0); LYMPHOCYTES % 9.1 % (20.0-50.0); MEAN CORPUSCULAR HEMOGLOBIN 28.7 pg (28.0-32.0); MEAN PLATELET VOLUME 7.1 fl (7.4-10.4); MONOCYTES % 10.5 % (2.0-8.0); NEUTROPHILS % 79.8 % (40.0-76.0); PLATELET 344 x1000/uL (130-400); RED BLOOD CELL COUNT 2.42 mill/uL (4.2-5.4)
[2021-03-24 12:45] LABS: HEMATOCRIT. 21.3 % (36.0-48.0); HEMOGLOBIN. 6.9 g/dL (12.0-16.0)
[2021-03-24 12:49] LABS: CHLORIDE 100 mEq/L (98-107)
[2021-03-24 12:55] LABS: INR 1.1; PROTHROMBIN TIME 11.3 sec (9.6-11.0)
[2021-03-24 13:10] LABS: CLARITY URINE CLOUDY (CLEAR); COLOR URINE RED (YELLOW); KETONES URINE NEGATIVE (NEGATIVE); LEUKOCYTE ESTERASE URINE 3+ (NEGATIVE); NITRITE URINE POSITIVE (NEGATIVE); OCCULT BLOOD URINE 3+ (NEGATIVE); PH URINE >=9.0 (4.5-8.0); PROTEIN URINE 2+ (NEGATIVE); SPECIFIC GRAVITY URINE 1.009 (1.005-1.030); UROBILINOGEN URINE 0.2 E.U./dL (0.2-1.0)
[2021-03-24] MEDS ORDERED: DOCUSATE SODIUM 100MG CAPSULE PO PRN (13:45)
[2021-03-24] MEDS ORDERED: ACETAMINOPHEN 650MG/20.3ML UDC GT PRN (13:45)
[2021-03-24] MEDS ORDERED: MORPHINE SULFATE 2 MG/ML CPJ (NOT FOR IM USE) IV PRN (13:45)
[2021-03-24] MEDS ORDERED: CLONIDINE 0.1MG TABLET PO PRN (13:45)
[2021-03-24] MEDS ORDERED: ONDANSETRON HCL 4MG/2ML INJ IV PRN (13:45)
[2021-03-24] MEDS ORDERED: *NO ASPIRIN X 24 HOURS XX SCH (13:45)
[2021-03-24] MEDS ORDERED: LIDOCAINE HCL 1% 10 MG/ML 10ML VIAL ONE (14:24)
[2021-03-24] MEDS ORDERED: AMIKACIN SULFATE 400 MG in SODIUM CHLORIDE 0.9% 100 ML IV NR (15:15)
[2021-03-24 17:48] VITALS: BP 113/59
[2021-03-24 18:00] VITALS: BP 113/59
[2021-03-24 18:30] VITALS: BP 130/78
[2021-03-24 18:50] VITALS: BP 118/64
[2021-03-25 02:02] VITALS: BP 132/61
[2021-03-25 05:15] LABS: CHLORIDE 104 mEq/L (98-107)
[2021-03-25 05:22] LABS: HEMATOCRIT. 24.4 % (36.0-48.0); HEMOGLOBIN. 8.2 g/dL (12.0-16.0); MEAN CORPUSCULAR HEMOGLOBIN 29.8 pg (28.0-32.0); MEAN CORPUSCULAR VOLUME 89.1 fL (81.0-99.0); MEAN PLATELET VOLUME 7.5 fl (7.4-10.4); PLATELET 297 x1000/uL (130-400); RED BLOOD CELL COUNT 2.74 mill/uL (4.2-5.4); RED CELL DISTRIBUTION WIDTH 15.8 % (11.6-14.6)
[2021-03-25 07:01] LABS: PLATELET ESTIMATE NORMAL
[2021-03-25 08:00] VITALS: BP 115/60
[2021-03-25 10:52] VITALS: BP 112/60
[2021-03-25 12:00] VITALS: BP 112/62
[2021-03-25] MEDS ORDERED: AMIKACIN SULFATE 250 MG in SODIUM CHLORIDE 0.9% 100 ML IV SCH (15:30)
[2021-03-25 16:43] VITALS: BP 112/62
[2021-03-25 20:00] VITALS: BP 98/62
[2021-03-26] VITALS (14 sets, daily range): BP systolic 102–120; BP diastolic 50–65
[2021-03-26] MEDS ORDERED: SODIUM CHLORIDE 0.9% IV SCH
[2021-03-26] MEDS ORDERED: AMIKACIN SULFATE IV SCH
[2021-03-26] MEDS ORDERED: IOHEXOL-300 100 ML BOTTLE ONE (09:35)
[2021-03-26] MEDS ORDERED: LIDOCAINE HCL 1% 20ML VIAL (Pyxis) INJ ONE (09:35)
[2021-03-26] MEDS ORDERED: NALOXONE HCL 0.4MG/ML VIAL IV PRN (18:30)
[2021-03-26] MEDS ORDERED: METOPROLOL TARTRATE 25MG TABLET PO SCH (21:00)
== END 2021-03-26 19:45 | DRG 686 ==
LOC: ER 10:54 → 6WST 13:11 → EDBEDREQ 13:16 → EDBEDREQTM 13:18 → SUPCPDRO 15:16 → ENRESERV 16:30
PROVIDERS: ADMIT Internal Medicine Nephrology; ATTEND Internal Medicine Nephrology
PROC: 30233N1 Transfusion of Nonautologous Red Blood Cells into Peripheral Vein, Percutaneous Approach (ICD-10-PCS; principal; 2021-03-24)
PROC: 02HV33Z Insertion of Infusion Device into Superior Vena Cava, Percutaneous Approach (ICD-10-PCS; 2021-03-24)
PROC: B548ZZA Ultrasonography of Superior Vena Cava, Guidance (ICD-10-PCS; 2021-03-24)
PROC: B5181ZA Fluoroscopy of Superior Vena Cava using Low Osmolar Contrast, Guidance (ICD-10-PCS; 2021-03-24)
PROC: B5191ZZ Fluoroscopy of Inferior Vena Cava using Low Osmolar Contrast (ICD-10-PCS; 2021-03-26)
DX: C64.1 Malignant neoplasm of right kidney, except renal pelvis (principal); E43 Unspecified severe protein-calorie malnutrition; I82.220 Acute embolism and thrombosis of inferior vena cava; N39.0 Urinary tract infection, site not specified; N02.9 Recurrent and persistent hematuria with unspecified morphologic changes; I82.432 Acute embolism and thrombosis of left popliteal vein; I82.411 Acute embolism and thrombosis of right femoral vein; Z68.1 Body mass index [BMI] 19.9 or less, adult; F03.90 Unspecified dementia, unspecified severity, without behavioral disturbance, psychotic disturbance, mood disturbance, and anxiety; R62.7 Adult failure to thrive; Z20.822 Contact with and (suspected) exposure to COVID-19; D50.0 Iron deficiency anemia secondary to blood loss (chronic); B96.5 Pseudomonas (aeruginosa) (mallei) (pseudomallei) as the cause of diseases classified elsewhere; F17.200 Nicotine dependence, unspecified, uncomplicated; N26.1 Atrophy of kidney (terminal); Z79.899 Other long term (current) drug therapy; Z93.1 Gastrostomy status; Z82.49 Family history of ischemic heart disease and other diseases of the circulatory system
CPT/HCPCS: 36415; 36573; 37191; 71045; 80053; 80162; 81003; 83605; 85025; 86850; 86900; 86920; 87426; 93005; 93970; 99291; C1725; C1766; J0278; J1644; J2270; J3490; J7050; P9016; Q9967